=== PATIENT | female | born 1945 | race Caucasian/White ===

== ENCOUNTER → 2018-12-20 | Outpatient (CLI) | payer OTHER ==
[~2018-12-20] MED LIST: AMITRIPTYLINE H25 M2 PO; ASPIRIN EC325 M1 PO; BENADRYL25 MG PO; CALCIUM-VITAMI1 EAC1 PO; FISH OIL SOFTG1 EACH; IBUPROFEN 200200 M1 PO; NEXIUM 40 MG CA40 M1 PO; OXYCONTIN10 M1 PO; PERCOCET 7.5-31 EACH PO; VITAMIN D31000 UNI2 PO; WELCHOL 625 MG625 M1 PO; ZOLOFT100 MG PO; [UNRECOGNIZED DRUG - OTHER] PO
== END ==
LOC: CAT 11:54
DX: R19.07 Generalized intra-abdominal and pelvic swelling, mass and lump (principal)